=== PATIENT | male | born 1985 | race Caucasian/White ===

== ENCOUNTER → 2019-12-15 17:03 | Outpatient (CLI) | payer MEDICAID, SELFPAY ==
[2019-12-15 17:48] LABS: Chloride 104 mmol/L (98-107)
[2019-12-15 17:49] LABS: Basophils % 0.8 % (0.1-2.0); Eosinophils # 0.1 K/mm3 (0.0-0.4); Eosinophils % 1.9 % (0.1-12.0); Hematocrit 45.9 % (42.0-52.0); Hemoglobin 15.9 g/dL (14.1-18.0); Lymphocytes # 1.7 K/mm3 (0.7-4.5); Lymphocytes % 32.5 % (10-50); Mean Corpuscular HGB Conc 34.6 g/dL (31.8-35.4); Mean Corpuscular Hemoglobin 31.4 pg (27.0-31.2); Mean Corpuscular Volume 90.7 fl (80-94); Monocytes # 0.4 K/mm3 (0.1-1.0); Monocytes % 6.9 % (1.7-9.3); Neutrophils % 57.9 % (37.0-80.0); Platelet Count 255 K/mm3 (142-424); Potassium 4.3 mmoL/L (3.5-5.1); Red Blood Count 5.06 M/mm3 (4.60-6.20); Red Cell Distribution Width 13.1 % (11.5-17.5); Sodium 136 mmol/L (136-145); White Blood Count 5.2 K/mm3 (4.8-10.8)
[2019-12-15 17:51] LABS: Alanine Aminotransferase 29 U/L (12-78); Albumin Level 4.4 g/dl (3.5-5.0); Albumin/Globulin Ratio 1.8 (1.1-1.8); Alkaline Phosphatase 86 U/L (38-126); Anion Gap 10.3 mEq/L (5-15); Aspartate Amino Transferase 40 U/L (17-59); Bilirubin,Total 0.5 mg/dl (0.2-1.3); Blood Urea Nitrogen 13 mg/dl (9-20); Carbon Dioxide 26 mmol/L (22.0-30.0); Estimated Glomerular Filt Rate 98 ml/min (>60); GFR (African American) 118 ML/MIN (>60); Globulin 2.4 g/dL (1.3-3.2); Total Protein,Serum 6.8 g/dl (6.3-8.2)
[2019-12-15 17:52] LABS: Calcium 9.1 mg/dl (8.4-10.2); Chol/HDL Ratio 3.7 (1-3.5); Cholesterol 150 mg/dl (140-200); Glucose 108 mg/dl (74-100); HDL Cholesterol 41 mg/dl (40-60); Triglycerides 320 mg/dl (30-150); VLDL Cholesterol 64 mg/dL (0-40)
[2019-12-15 18:03] LABS: Direct LDL Cholesterol 84.01 mg/dL (100-129)
[2019-12-15 18:23] LABS: Thyroid Stimulating Hormone 1.68 uIU/mL (0.465-4.68)
[2019-12-17 11:18] LABS: Vitamin D 25 Hydroxy 27.6 ng/mL (30.0-100.0)
== END ==
PROVIDERS: Visit Provider Physician Assistant
DX: R53.83 Other fatigue (principal); E55.9 Vitamin D deficiency, unspecified; Z79.899 Other long term (current) drug therapy
CPT/HCPCS: 80053; 80061; 82652; 84436; 84443; 85025

== ENCOUNTER → 2020-02-04 17:05 | Outpatient (CLI) | payer MEDICAID, SELFPAY ==
[2020-02-06 10:16] LABS: Covid-19 Nasal PCR Sendout UK Not Detected
== END ==
PROVIDERS: PCP Physician Assistant; Visit Provider Physician Assistant
DX: Z03.818 Encounter for observation for suspected exposure to other biological agents ruled out (principal)
CPT/HCPCS: U0003

== ENCOUNTER 2020-06-10 15:32 | Emergency (ER) | payer BC, MEDICAID, SELFPAY ==
[2020-06-10 16:10] VITALS: BP 136/85; PULSE 86; RESP 15; TEMP 37.1; O2SAT 97; BMI 32.1
--- NOTE | 2020-06-10 16:36 | HMH.EDUTC ---
[facility] [place]: Exposure to COVID-19 virus Disposition: Home, Self-Care Condition on Discharge: Good Instructions: Preventing the Spread of Coronavirus Discharge Instructions Additional Instructions: isolate until est results are known neg Referrals: Alanis Dowd PA [Primary Care Provider] - Time of Disposition: 16:39 Medical Decision Making - Rafa Inquiry Pt receiving controlled substance: No Vital Signs: 06/10/20 16:10 Temperature 98.7 F Temperature Source Oral Pulse Rate [Right Brachial] 86 Respiratory Rate 15 Blood Pressure [Right Arm] 136/85 Blood Pressure Mean [Right Arm] 102 Blood Pressure Source [Right Arm] Automatic Cuff Blood Pressure Position [Right Arm] Sitting 02 Sat by Pulse Oximetry 97 Oxygen Delivery Method Room Air Orders (Tests/Meds): ORDERS Category Date Time Status Covid-19 Nasal PCR ([facility]) Routine Lab 06/10/20 15:35 [place] [facility] [place] - General Chief complaint: Urgent [facility] Center Stated complaint: covid exposure Time Seen by Provider: 06/10/20 16:36 Mode of Arrival: Ambulatory Source of Information: Patient Limitations: No Limitations Description of Symptoms (Recalled from Triage Doc. by RN): REQUESTING COVID TEST D/T EXPOSURE; DENIES SYMPTOMS HEENT Symptoms (Recalled from RN notes): No Resp Symptoms (Recalled from RN notes): No Skin Symptoms (Recalled from RN notes): No MS Symptoms (Recalled from RN notes): No Functional Status (Recalled from RN notes): WNL - History of Present Illness Provider Complaint: 34 yr old male presents for covid test, was exposed ths week by someone at work that tested positive. no symptoms - Related Data Home Medications Medication Instructions Recorded Confirmed buprenorphine 8 mg-naloxone 2 mg SUBLINGUAL 12/15/19 03/27/20 sublingual tablet Previous Rx's Medication Instructions Recorded amitriptyline 50 mg tablet 50 mg PO QHS #90 tab 03/27/20 cholecalciferol (vitamin D3) 25 25 mcg PO DAILY #90 cap 03/27/20 mcg (1,000 unit) capsule ergocalciferol (vitamin D2) 1,250 1,250 mcg PO QWEEK #12 cap 03/27/20 mcg (50,000 unit) capsule fluoxetine 20 mg capsule 20 mg PO DAILY #90 cap 03/27/20 gabapentin 600 mg tablet 600 mg PO Q8H #90 tab 03/27/20 lisinopril 5 mg tablet 5 mg PO DAILY #90 tab 03/27/20 Allergies Allergy/AdvReac Type Severity Reaction Status Date / Time Penicillins Allergy Verified 06/10/20 16:28 vancomycin Allergy Verified 06/10/20 16:28 - Worker's Comp Is this a Worker's Comp case?: No [facility] History - Hepatitis A Screen Drug use history?: No High risk sexual behaviors?: No History of sexually transmitted infection?: No Currently employed?: No Childcare worker?: No Do you have indoor plumbing?: Yes Do you have electricity?: Yes Attestation statement:: This patient has been screened for Hepatitis A risk factors. I have reviewed the patient's past medical history: Yes Amputation: No Fractures: No Comment: Hand surgery Lt - Social History Smoking Status: Current every day smoker Tobacco Type: e-cigarettes Alcohol Intake: never Substance Use Type: denies use Occupational Status: other Family Hx:: No significant family history ROS Obtained: Yes Systems reviewed as appropriate & no additional complaints - Constitutional Constitutional: Reports system reviewed and no additional complaints, except as docu, Denies chills, Denies fever(s) - Eyes Eyes: Reports system reviewed and no additional complaints, except as docu, Denies change in vision - ENT Ears, Nose, Mouth, and Throat: Reports system reviewed and no additional complaints, except as docu, Denies bleeding gums - Cardiovascular Cardiovascular: Reports system reviewed and no additional complaints, except as docu, Denies chest pain at rest - Respiratory Respiratory: Yes system reviewed and no additional complaints, except as docu, No change in phlegm color - Gastrointestinal Gas
[2020-06-10 16:41] VITALS: BP 136/85; PULSE 86; RESP 15; TEMP 37.1; O2SAT 97
--- NOTE | 2020-06-11 09:36 | PC.NURSE ---
patient notified of positive covid results
== END 2020-06-10 16:45 | disposition home or self-care (01) ==
PROVIDERS: Emergency Provider Nurse Practitioner Family; PCP Physician Assistant
DX: U07.1 COVID-19 (principal); F17.290 Nicotine dependence, other tobacco product, uncomplicated; Z88.0 Allergy status to penicillin
CPT/HCPCS: 99201; U0003

== ENCOUNTER 2020-06-21 15:22 | Emergency (ER) | payer BC, MEDICAID, SELFPAY ==
[2020-06-21 15:30] VITALS: BP 148/90; PULSE 85; RESP 19; TEMP 36.6; O2SAT 98; BMI 29.2
--- NOTE | 2020-06-21 15:46 | HMH.EDUTC ---
[facility] [place] Disposition Clinical Impression: Encounter for laboratory testing for COVID-19 virus Disposition: Home, Self-Care Condition on Discharge: Good Instructions: DI for COVID-19 (Suspected or Confirmed ), Preventing the Spread of Coronavirus Discharge Instructions Additional Instructions: *Monitor Temp, Over the counter Motrin or Tylenol as directed/as needed Tylenol every 4 hours and Motrin every 6 hours (as long as your family doctor has told you that you can take it) for fever or pain. and straight to ER if unable to lower temp less than 101.0 after medication given Follow up IMMEDIATELY for new or worsening symptoms or no Noticeable improvement over the next 48-72 hours. 911 for difficulty breathing or swallowing You were tested for today for COVID19 your test result should be back in the next 24-48 hours, you may call to the [facility] to see if your test results are back in the next 48 hours [phone] [facility] hours are 9am-9pm You was given a handout with instructions for Self Quarantine and Self isolation for while you wait on test results and what to do if they are positive If you are positive the Health Dept will be contacting you also Referrals: Alanis Dowd PA [Primary Care Provider] - As needed Forms: Work/School Release Time of Disposition: 15:50 Medical Decision Making - Rafa Inquiry Pt receiving controlled substance: No Rafa was queried for this patient: No Vital Signs: 06/21/20 15:30 Temperature 97.8 F Temperature Source Oral Pulse Rate [Right Brachial] 85 Respiratory Rate 19 Blood Pressure [Right Arm] 148/90 H Blood Pressure Mean [Right Arm] 109 Blood Pressure Source [Right Arm] Automatic Cuff Blood Pressure Position [Right Arm] Sitting 02 Sat by Pulse Oximetry 98 Oxygen Delivery Method Room Air Orders (Tests/Meds): ORDERS Category Date Time Status Covid-19 Nasal PCR ([facility]) Routine Lab 06/21/20 15:30 Received [facility] [place] HPI - General Stated complaint: covid test Time Seen by Provider: 06/21/20 15:46 Mode of Arrival: Ambulatory Source of Information: Patient Limitations: No Limitations Description of Symptoms (Recalled from Triage Doc. by RN): PATIENT TEST POSITIVE FOR COVID ON 06/10; REQUESTING A RE-TEST TO SEE IF NEGATIVE HEENT Symptoms (Recalled from RN notes): No Resp Symptoms (Recalled from RN notes): No Skin Symptoms (Recalled from RN notes): No MS Symptoms (Recalled from RN notes): No Functional Status (Recalled from RN notes): WNL - History of Present Illness Provider Complaint: Patient state that he tested positive for COVID on 06/10/20 State the has completed his quaratine and his work is requiring him to have a negative COVID test before he can return to work so he came back in today to get retested denies any symptoms - Related Data Home Medications Medication Instructions Recorded Confirmed buprenorphine 8 mg-naloxone 2 mg SUBLINGUAL 12/15/19 03/27/20 sublingual tablet Previous Rx's Medication Instructions Recorded amitriptyline 50 mg tablet 50 mg PO QHS #90 tab 03/27/20 cholecalciferol (vitamin D3) 25 25 mcg PO DAILY #90 cap 03/27/20 mcg (1,000 unit) capsule ergocalciferol (vitamin D2) 1,250 1,250 mcg PO QWEEK #12 cap 03/27/20 mcg (50,000 unit) capsule fluoxetine 20 mg capsule 20 mg PO DAILY #90 cap 03/27/20 gabapentin 600 mg tablet 600 mg PO Q8H #90 tab 03/27/20 lisinopril 5 mg tablet 5 mg PO DAILY #90 tab 03/27/20 Allergies Allergy/AdvReac Type Severity Reaction Status Date / Time Penicillins Allergy Verified 06/10/20 16:28 vancomycin Allergy Verified 06/10/20 16:28 - Worker's Comp Is this a Worker's Comp case?: No [facility] History - Hepatitis A Screen Drug use history?: No High risk sexual behaviors?: No History of sexually transmitted infection?: No Currently employed?: No Childcare worker?: No Do you have indoor plumbing?: Yes Do you have electricity?: Yes Attestation statement:: This patient has been screened for
[2020-06-21 15:52] VITALS: BP 148/90; PULSE 85; RESP 19; TEMP 36.6; O2SAT 98
== END 2020-06-21 15:54 | disposition home or self-care (01) ==
PROVIDERS: Emergency Provider Nurse Practitioner; PCP Physician Assistant
DX: Z86.19 Personal history of other infectious and parasitic diseases (principal)
CPT/HCPCS: 99201; U0003

== ENCOUNTER → 2020-06-27 17:36 | Outpatient (CLI) | payer BC, MEDICAID, SELFPAY ==
[2020-06-27 18:17] LABS: Basophils # 0.1 K/mm3 (0-0.2); Eosinophils # 0.1 K/mm3 (0.0-0.4); Eosinophils % 2.4 % (0.1-12.0); Hemoglobin 15.6 g/dL (14.1-18.0); Lymphocytes # 1.9 K/mm3 (0.7-4.5); Lymphocytes % 31.4 % (10-50); Mean Corpuscular Hemoglobin 30.2 pg (27.0-31.2); Mean Corpuscular Volume 88.8 fl (80-94); Mean Platelet Volume 8.2 fl (7.4-10.4); Monocytes # 0.4 K/mm3 (0.1-1.0); Monocytes % 6.8 % (1.7-9.3); Neutrophils # 3.5 K/mm3 (1.8-7.8); Neutrophils % 58.4 % (37.0-80.0); Platelet Count 323 K/mm3 (142-424); Red Blood Count 5.18 M/mm3 (4.60-6.20); Red Cell Distribution Width 13.6 % (11.5-17.5); White Blood Count 6.1 K/mm3 (4.8-10.8)
[2020-06-27 18:44] LABS: Alanine Aminotransferase 46 U/L (12-78); Albumin Level 4.6 g/dl (3.5-5.0); Albumin/Globulin Ratio 1.7 (1.1-1.8); Alkaline Phosphatase 93 U/L (38-126); Anion Gap 12.1 mEq/L (5-15); Aspartate Amino Transferase 40 U/L (17-59); Bilirubin,Total 0.3 mg/dl (0.2-1.3); Blood Urea Nitrogen 11 mg/dl (9-20); Calcium 9.9 mg/dl (8.4-10.2); Carbon Dioxide 32 mmol/L (22.0-30.0); Chloride 98 mmol/L (98-107); Chol/HDL Ratio 4.3 (1-3.5); Cholesterol 203 mg/dl (140-200); Estimated Glomerular Filt Rate 98 ml/min (>60); GFR (African American) 118 ML/MIN (>60); Globulin 2.7 g/dL (1.3-3.2); Glucose 118 mg/dl (74-100); HDL Cholesterol 47 mg/dl (40-60); Potassium 4.1 mmoL/L (3.5-5.1); Sodium 138 mmol/L (136-145); Total Protein,Serum 7.3 g/dl (6.3-8.2)
[2020-06-27 18:55] LABS: Direct LDL Cholesterol 110.21 mg/dL (100-129)
[2020-06-27 19:00] LABS: Triglycerides 403 mg/dl (30-150)
[2020-06-29 08:23] LABS: Hep A Ab, IgM Negative (Negative); Hepatitis B Core Antibody IgM Negative (Negative); Hepatitis B Surface Antigen Negative (Negative)
[2020-06-29 09:10] LABS: Hepatitis C Antibody <0.1 s/co ratio (0.0-0.9); Testosterone,Total 199 ng/dL (264-916)
== END ==
PROVIDERS: Visit Provider Physician Assistant
DX: R68.82 Decreased libido (principal); G62.9 Polyneuropathy, unspecified; Z79.899 Other long term (current) drug therapy
CPT/HCPCS: 80053; 80061; 80074; 84403; 84443; 85025

== ENCOUNTER 2021-02-07 09:46 | Emergency (ER) | payer BC, MEDICAID, SELFPAY ==
[2021-02-07 09:46] VITALS: BP 143/86; PULSE 71; RESP 21; TEMP 36.9; O2SAT 98; BMI 30.4
--- NOTE | 2021-02-07 10:20 | HMH.EDUTC ---
[facility] [place] Clinical Impression: Exposure to COVID-19 virus Disposition: Home, Self-Care Condition on Discharge: Good Instructions: DI for COVID-19 (Suspected or Confirmed ), Preventing the Spread of Coronavirus Discharge Instructions Additional Instructions: Drink plenty of fluids. Take tylenol for pain or fever. Return if you begin to have difficulty breathing. Follow up with your regular doctor. GO TO THE ER FOR ANY WORSENING SYMPTOMS Referrals: Alanis Dowd PA [Primary Care Provider] - Forms: Work/School Release Time of Disposition: 10:30 Medical Decision Making - Medical Records Medical records reviewed: No: I reviewed the patient's medical records. - Rafa Inquiry Pt receiving controlled substance: No Vital Signs: 02/07/21 09:46 02/07/21 10:46 Temperature 98.4 F 98.4 F Temperature Source Oral Pulse Rate 71 Pulse Rate [Left Radial] 71 Respiratory Rate 21 21 Blood Pressure 143/86 H Blood Pressure [Right Arm] 143/86 H Blood Pressure Mean [Right Arm] 105 Blood Pressure Source [Right Arm] Automatic Cuff Blood Pressure Position [Right Arm] Sitting 02 Sat by Pulse Oximetry 98 Oxygen Delivery Method Room Air Room Air [facility] [place] - General Stated complaint: Covid Test Time Seen by Provider: 02/07/21 10:20 Mode of Arrival: Ambulatory Source of Information: Patient Limitations: No Limitations Description of Symptoms (Recalled from Triage Doc. by RN): covid test, exposure last week HEENT Symptoms (Recalled from RN notes): No Resp Symptoms (Recalled from RN notes): No Skin Symptoms (Recalled from RN notes): No MS Symptoms (Recalled from RN notes): No Functional Status (Recalled from RN notes): wnl - History of Present Illness Provider Complaint: He is here for a covid test. He denies any symptoms. He has been exposed by a house hold contact. - Related Data Home Medications Medication Instructions Recorded Confirmed buprenorphine 8 mg-naloxone 2 mg SUBLINGUAL 12/15/19 12/18/20 sublingual tablet Previous Rx's Medication Instructions Recorded fluoxetine 20 mg capsule 20 mg PO DAILY #90 cap 03/27/20 amitriptyline 50 mg tablet 50 mg PO QHS #90 tab 12/05/20 lisinopril 10 mg tablet 10 mg PO DAILY #90 tab 12/18/20 gabapentin 800 mg tablet 800 mg PO TID #90 tab 01/25/21 Allergies Allergy/AdvReac Type Severity Reaction Status Date / Time Penicillins Allergy Verified 12/18/20 09:10 vancomycin Allergy Verified 12/18/20 09:10 - Worker's Comp Is this a Worker's Comp case?: No [facility] History - Hepatitis A Screen Drug use history?: No High risk sexual behaviors?: No History of sexually transmitted infection?: No Currently employed?: No Childcare worker?: No Do you have indoor plumbing?: Yes Do you have electricity?: Yes Attestation statement:: This patient has been screened for Hepatitis A risk factors. I have reviewed the patient's past medical history: Yes Other Medical History: Reports: Other Comment: Neuropathy Other Surgeries: Yes: Other Amputation: No Fractures: No Comment: Hand surgery - Social History Smoking Status: Current every day smoker Tobacco Type: e-cigarettes Alcohol Intake: never Substance Use Type: denies use Occupational Status: other Family Hx:: No significant family history ROS Obtained: Yes All systems reviewed & no additional complaints - Constitutional Constitutional: Reports system reviewed and no additional complaints, except as docu - Eyes Eyes: Reports system reviewed and no additional complaints, except as docu - ENT Ears, Nose, Mouth, and Throat: Reports system reviewed and no additional complaints, except as docu - Cardiovascular Cardiovascular: Reports system reviewed and no additional complaints, except as docu - Respiratory Respiratory: Reports system reviewed and no additional complaints, except as docu Physical Exam - General General appearance: alert, in no apparen
[2021-02-07 10:46] VITALS: BP 143/86; PULSE 71; RESP 21; TEMP 36.9; O2SAT 98
== END 2021-02-07 10:47 | disposition home or self-care (01) ==
PROVIDERS: Emergency Provider Nurse Practitioner Family; PCP Physician Assistant
DX: Z20.822 Contact with and (suspected) exposure to COVID-19 (principal); F17.290 Nicotine dependence, other tobacco product, uncomplicated
CPT/HCPCS: 99202; G0463; U0003

== ENCOUNTER 2021-02-25 18:31 | Emergency (ER) | payer BC, MEDICAID, SELFPAY ==
[2021-02-25 19:10] VITALS: BP 140/79; PULSE 70; RESP 20; TEMP 36.8; O2SAT 98; BMI 29.2
--- NOTE | 2021-02-25 19:40 | HMH.EDUTC ---
[facility] [place] Dis[place] Clinical Impression: Exposure to COVID-19 virus Disposition: Home, Self-Care Condition on Discharge: Good Instructions: COVID-19: Testing and Tracing Additional Instructions: covid swab was sent to lab, call later today for results. self isolate until test results are known to be negative Referrals: Alanis Dowd PA [Primary Care Provider] - Time of Disposition: 19:45 Medical Decision Making - Rafa Inquiry Pt receiving controlled substance: No Vital Signs: 02/25/21 19:10 Temperature 98.3 F Temperature Source Temporal Artery Scan Pulse Rate [Right Brachial] 70 Respiratory Rate 20 Blood Pressure [Right Arm] 140/79 Blood Pressure Mean [Right Arm] 99 Blood Pressure Source [Right Arm] Automatic Cuff Blood Pressure Position [Right Arm] Sitting 02 Sat by Pulse Oximetry 98 Oxygen Delivery Method Room Air Orders (Tests/Meds): ORDERS Category Date Time Status Covid-19 Nasal PCR ([facility]) Routine Lab 02/25/21 19:15 Received [facility] [place] HPI - General Chief complaint: Urgent Treatment Center Stated complaint: covid test Time Seen by Provider: 02/25/21 19:41 Mode of Arrival: Ambulatory Source of Information: Patient Limitations: No Limitations Description of Symptoms (Recalled from Triage Doc. by RN): COVID TEST D/T EXPOSURE, DENIES SYMPTOMS HEENT Symptoms (Recalled from RN notes): No Resp Symptoms (Recalled from RN notes): No Skin Symptoms (Recalled from RN notes): No MS Symptoms (Recalled from RN notes): No Functional Status (Recalled from RN notes): WNL - History of Present Illness Provider Complaint: 35 yr old male presents for covid test. pt states no symptoms but has been exposed by coworker - Related Data Home Medications Medication Instructions Recorded Confirmed buprenorphine 8 mg-naloxone 2 mg SUBLINGUAL 12/15/19 12/18/20 sublingual tablet Previous Rx's Medication Instructions Recorded fluoxetine 20 mg capsule 20 mg PO DAILY #90 cap 03/27/20 amitriptyline 50 mg tablet 50 mg PO QHS #90 tab 12/05/20 lisinopril 10 mg tablet 10 mg PO DAILY #90 tab 12/18/20 gabapentin 800 mg tablet 800 mg PO TID #90 tab 01/25/21 Allergies Allergy/AdvReac Type Severity Reaction Status Date / Time Penicillins Allergy Verified 12/18/20 09:10 vancomycin Allergy Verified 12/18/20 09:10 - Worker's Comp Is this a Worker's Comp case?: No [facility] History - Hepatitis A Screen Drug use history?: No High risk sexual behaviors?: No History of sexually transmitted infection?: No Currently employed?: No Childcare worker?: No Do you have indoor plumbing?: Yes Do you have electricity?: Yes Attestation statement:: This patient has been screened for Hepatitis A risk factors. I have reviewed the patient's past medical history: Yes Other Medical History: Reports: Other Comment: Neuropathy Other Surgeries: Yes: Other Amputation: No Fractures: No Comment: Hand surgery - Social History Smoking Status: Current every day smoker Tobacco Type: e-cigarettes Alcohol Intake: never Substance Use Type: denies use Occupational Status: other Family Hx:: No significant family history ROS Obtained: Yes All systems reviewed & no additional complaints - Constitutional Constitutional: Reports system reviewed and no additional complaints, except as docu, Denies chills - Eyes Eyes: Reports system reviewed and no additional complaints, except as docu, Denies change in vision - ENT Ears, Nose, Mouth, and Throat: Reports system reviewed and no additional complaints, except as docu, Denies abnormal hearing - Cardiovascular Cardiovascular: Reports system reviewed and no additional complaints, except as docu, Denies chest pain - Respiratory Respiratory: Reports system reviewed and no additional complaints, except as docu, Denies cough - Gastrointestinal Gastrointestingal: Reports: system reviewed and no additional complaints, except as docu. Denies: abdominal pain - Genito
[2021-02-25 19:51] VITALS: BP 140/79; PULSE 70; RESP 20; TEMP 36.8; O2SAT 98
== END 2021-02-25 19:54 | disposition home or self-care (01) ==
PROVIDERS: Emergency Provider Nurse Practitioner Family; PCP Physician Assistant
DX: U07.1 COVID-19 (principal); F17.290 Nicotine dependence, other tobacco product, uncomplicated
CPT/HCPCS: 99202; G0463; U0003

== ENCOUNTER → 2021-03-29 19:45 | Outpatient (CLI) | payer BC, MEDICAID, SELFPAY ==
[2021-03-29 20:07] LABS: Amphetamine/Metha Screen,Urine Negative ng/ml (<1000); Barbiturates Screen,Urine Negative ng/ml (<200)
[2021-03-29 20:08] LABS: Benzodiazepines Screen,Urine Negative ng/ml (<200); Cannabinoid Screen,Urine Positive ng/ml (<50)
[2021-03-29 20:09] LABS: Cocaine Screen,Urine Negative ng/ml (<300)
[2021-03-29 20:10] LABS: Methadone Screen,Urine Negative ng/ml (<300); Opiate Screen,Urine Negative ng/ml (<300)
[2021-03-29 20:11] LABS: Phencyclidine Screen,Urine Negative ng/ml (<25)
== END ==
PROVIDERS: Visit Provider Family Medicine
DX: G62.9 Polyneuropathy, unspecified (principal)
CPT/HCPCS: 80305

== ENCOUNTER 2021-04-11 10:15 | Emergency (ER) | payer BC, MEDICAID, SELFPAY ==
[2021-04-11 10:20] VITALS: BP 141/98; PULSE 102; RESP 18; TEMP 37.1; O2SAT 98; BMI 33.5
--- NOTE | 2021-04-11 10:57 | HMH.EDUTC ---
[facility] [place] Clinical Impression: Sinusitis Qualifiers: Sinusitis location: unspecified location Chronicity: unspecified Qualified Code(s): J32.9 - Chronic sinusitis, unspecified Disposition: Home, Self-Care Condition on Discharge: Good Instructions: Sinusitis, DI for Sinusitis, Doxycycline Additional Instructions: *Monitor Temp, Over the counter Motrin or Tylenol as directed/as needed Tylenol every 4 hours and Motrin every 6 hours (as long as your family doctor has told you that you can take it) for fever or pain. and straight to ER if unable to lower temp less than 101.0 after medication given *Warm salt water gargles may help to soothe the throat *Throat Lozenges *Warm fluids like tea with honey may help to soothe the throat *Sleep elevated *Humidifier/Vaporizer Follow up IMMEDIATELY for new or worsening symptoms or no Noticeable improvement over the next 48-72 hours. 911 for difficulty breathing or swallowing You were tested for today for COVID19 your test result should be back in the next 24-48 hours, you was given handout to log on [facility] portal to get your results if you have issues logging on you can call [facility] You was given a handout with instructions for Self Quarantine and Self isolation for while you wait on test results and what to do if they are positive If you are positive the Health Dept will be contacting you also Make sure to take your Vitamins Vit. C Vit D and Zinc if you can take them Prescriptions: Doxycycline Monohydrate [Doxycycline Knott 100mg Tab] 100 mg PO Q12 7 Days #14 tab Transmission Status: Pending to [facility] Fluticasone Propionate [Flonase 50mcg nasal spray 16gm] 1 spr NS DAILY #1 each Transmission Status: Pending to [facility] Referrals: Alanis Dowd PA [Primary Care Provider] - As needed Forms: Work/School Release Time of Disposition: 11:03 Medical Decision Making - Rafa Inquiry Pt receiving controlled substance: No Rafa was queried for this patient: No Vital Signs: 04/11/21 10:20 Temperature 98.8 F Temperature Source Oral Pulse Rate [Right Brachial] 102 H Respiratory Rate 18 Blood Pressure [Right Arm] 141/98 H Blood Pressure Mean [Right Arm] 112 Blood Pressure Source [Right Arm] Automatic Cuff Blood Pressure Position [Right Arm] Sitting 02 Sat by Pulse Oximetry 98 Oxygen Delivery Method Room Air Orders (Tests/Meds): ORDERS Category Date Time Status Covid-19 Nasal PCR ([facility]) Routine Lab 04/11/21 10:20 Received Medical Decision Narrative: Medication discussed with pharmacy [facility] [place] HPI - General Stated complaint: H/A, soa, congestion, covid exposure Time Seen by Provider: 04/11/21 10:57 Mode of Arrival: Ambulatory Source of Information: Patient Limitations: No Limitations Description of Symptoms (Recalled from Triage Doc. by RN): PATIENT C/O COUGH, CONGESTION AND HEADACHE. RECENTLY EXPOSED TO COVID HEENT Symptoms (Recalled from RN notes): No Resp Symptoms (Recalled from RN notes): No Skin Symptoms (Recalled from RN notes): No MS Symptoms (Recalled from RN notes): No Functional Status (Recalled from RN notes): WNL - History of Present Illness Provider Complaint: Patient states that he has been having sinus pain and pressure, cough, yellowish green mucous and feeling pressure behind his eyes States that he was recently around someone at work that tested positive for COVID and wanted to get checked and tested - Related Data Home Medications Medication Instructions Recorded Confirmed buprenorphine 8 mg-naloxone 2 mg SUBLINGUAL 12/15/19 03/29/21 sublingual tablet Previous Rx's Medication Instructions Recorded fluoxetine 20 mg capsule 20 mg PO DAILY #90 cap 03/27/20 lisinopril 10 mg tablet 10 mg PO DAILY #90 tab 12/18/20 amitriptyline 50 mg tablet 50 mg PO QHS #90 tab 03/08/21 gabapentin 800 mg tablet 800 mg PO TID #90 tab 03/29/21 Doxycycline Monohydrate 100 mg PO Q12 7 Days #14 tab 04/11/21 [Doxycy
[2021-04-11 11:12] VITALS: BP 141/98; PULSE 102; RESP 18; TEMP 37.1; O2SAT 98
== END 2021-04-11 11:13 | disposition home or self-care (01) ==
PROVIDERS: Emergency Provider Nurse Practitioner; PCP Physician Assistant
DX: J32.9 Chronic sinusitis, unspecified (principal); Z20.822 Contact with and (suspected) exposure to COVID-19; F17.290 Nicotine dependence, other tobacco product, uncomplicated; F41.8 Other specified anxiety disorders
CPT/HCPCS: 99202; C9803; G0463; U0003; U0005

== ENCOUNTER → 2021-07-16 15:33 | Outpatient (CLI) | payer BC, MEDICAID, SELFPAY | PROVIDERS: Visit Provider Nurse Practitioner | DX: U07.1 COVID-19 (principal) | CPT/HCPCS: C9803; U0003; U0005 ==

== ENCOUNTER 2021-08-31 12:15 | Emergency (ER) | payer MEDICAID, SELFPAY ==
[2021-08-31 13:33] VITALS: BP 0/0; PULSE 0; RESP 0; TEMP -17.7; TEMP 0
== END 2021-08-31 13:34 | disposition left against medical advice (07) ==
PROVIDERS: Emergency Provider Nurse Practitioner Family; PCP Physician Assistant
DX: Z53.21 Procedure and treatment not carried out due to patient leaving prior to being seen by health care provider (principal)

== ENCOUNTER 2021-10-28 16:52 | Emergency (ER) | payer OTHER, SELFPAY ==
[2021-10-28 17:12] VITALS: BP 146/91; PULSE 103; RESP 18; TEMP 36.6; O2SAT 97; BMI 30.7
[2021-10-28 17:51] VITALS: BP 139/77; PULSE 93; RESP 18; TEMP 37.1; O2SAT 99; BMI 29.9
--- NOTE | 2021-10-28 17:51 | HMH.EDUTC ---
[facility] [place] Disposition Clinical Impression: Need for tetanus booster Laceration of right hand Qualifiers: Encounter type: initial encounter Foreign body presence: without foreign body Qualified Code(s): S61.411A - Laceration without foreign body of right hand, initial encounter Disposition: Home, Self-Care Condition on Discharge: Good Instructions: How to Care for a Laceration After Repair, DI for Laceration Repair -- Simple, Tetanus, Diphtheria, Pertussis (Tdap) Vaccine Additional Instructions: Keep the wound clean and dry. Keep a dressing on it if you are going to be getting it dirty. Watch the for signs of infection, such as redness, swelling, drainage, fever. etc. Take tylenol or ibuprofen for pain. Follow up with your regular doctor. Return in 7 to 10 days to have the sutures removed. This wound will probably need closer to 10 days to heal considering its on a place that will be moving a lot. GO TO THE ER FOR ANY WORSENING SYMPTOMS OR CONCERNS. Prescriptions: cephALEXin [cephALEXin 500mg capsule] 500 mg PO Q6H 10 Days #40 cap Transmission Status: Received by [facility] Referrals: Alanis Dowd PA [Primary Care Provider] - Forms: Work/School Release Time of Disposition: 18:55 Medical Decision Making - Medical Records Medical records reviewed: No: I reviewed the patient's medical records. - Rafa Inquiry Pt receiving controlled substance: No Vital Signs: 10/28/21 17:12 10/28/21 17:51 10/28/21 19:09 Temperature 97.9 F 98.7 F 98.7 F Temperature Source Oral Oral Oral Pulse Rate 93 H Pulse Rate [Left Brachial] 103 H 93 H Respiratory Rate 18 18 18 Blood Pressure 139/77 Blood Pressure [Left Arm] 146/91 H 139/77 Blood Pressure Mean [Left Arm] 109 97 Blood Pressure Source [Left Arm] Automatic Cuff Blood Pressure Position [Left Arm] Sitting 02 Sat by Pulse Oximetry 97 99 Oxygen Delivery Method Room Air Orders (Tests/Meds): ED MEDICATIONS Discontinued Medications Generic Name Dose Route Start Last Admin Trade Name Freq PRN Reason Stop Dose Admin Lidocaine HCl 4 ml 10/28/21 19:06 10/28/21 19:07 Lidocaine 1% Pf 2ml Ampule SQ 10/28/21 19:07 4 mg ONCE ONE Administration Tetanus/Reduced Diphtheria/Acell Pertussis 0.5 ml 10/28/21 18:53 10/28/21 19:03 Tet/Diphth/Pert-Adult 0.5ml Syringe IM 10/28/21 18:54 0.5 ml .ONCE ONE Administration [facility] [place] HPI - General Stated complaint: ao 10/28@1515Lac to R Hand Time Seen by Provider: 10/28/21 17:51 Mode of Arrival: Ambulatory Source of Information: Patient Limitations: No Limitations Description of Symptoms (Recalled from Triage Doc. by RN): WORKING ON ITS [employer], WRENCH SLIPPED. LACERATION BETWEEM THUMB AND INDEX FINGER. ABOUT 1 INCH LONG. PT ABLE TO MOVE ALL FINGERS, NO LOSS OF SENSATION. - History of Present Illness Provider Complaint: He was working on a 4-ma at home when the wrench slipped and he bumped his right hand into a sharp piece of metal. He has a laceration on the dorsal surface of his right hand. His tetanus immunization is not up to date. - Related Data Home Medications Medication Instructions Recorded Confirmed buprenorphine 8 mg-naloxone 2 mg SUBLINGUAL 12/15/19 07/10/21 sublingual tablet Previous Rx's Medication Instructions Recorded Fluticasone Propionate [Flonase 1 spr NS DAILY #1 each 04/11/21 50mcg nasal spray 16gm] amitriptyline 50 mg tablet 50 mg PO QHS #90 tab 06/22/21 fluoxetine 20 mg capsule 20 mg PO DAILY #90 cap 06/22/21 amlodipine 10 mg tablet 10 mg PO DAILY #90 tab 07/10/21 gabapentin 800 mg tablet 800 mg PO TID #90 tab 07/10/21 cephALEXin [cephALEXin 500mg 500 mg PO Q6H 10 Days #40 cap 10/28/21 capsule] Allergies Allergy/AdvReac Type Severity Reaction Status Date / Time Penicillins Allergy Verified 07/10/21 16:10 vancomycin Allergy Verified 07/10/21 16:10 [facility] History - Hepatitis A Screen Attestation statement
[2021-10-28 19:09] VITALS: BP 139/77; PULSE 93; RESP 18; TEMP 37.1
== END 2021-10-28 19:10 | disposition home or self-care (01) ==
PROVIDERS: Emergency Provider Nurse Practitioner Family; PCP Physician Assistant
DX: S61.411A Laceration without foreign body of right hand, initial encounter (principal); Z23 Encounter for immunization; F41.8 Other specified anxiety disorders; Z87.891 Personal history of nicotine dependence; W26.9XXA Contact with unspecified sharp object(s), initial encounter; Y92.019 Unspecified place in single-family (private) house as the place of occurrence of the external cause
CPT/HCPCS: 12002; 90471; 90715; 96372; 99213; G0463

== ENCOUNTER 2022-02-05 14:42 | Emergency (ER) | payer BC, SELFPAY ==
[2022-02-05 14:55] VITALS: BP 132/90; PULSE 77; RESP 19; TEMP 36.8; O2SAT 98; BMI 29.8
[2022-02-05 15:07] VITALS: BP 132/90; PULSE 77; RESP 19; TEMP 36.8; O2SAT 98
--- NOTE | 2022-02-05 15:15 | HMH.EDUTC ---
[facility] [place] Clinical Impression: Exposure to COVID-19 virus Disposition: Home, Self-Care Condition on Discharge: Good Instructions: DI for COVID-19 (Suspected or Confirmed ), Preventing the Spread of Coronavirus Discharge Instructions Additional Instructions: *Monitor Temp, Over the counter Motrin or Tylenol as directed/as needed Tylenol every 4 hours and Motrin every 6 hours (as long as your family doctor has told you that you can take it) for fever or pain. and straight to ER if unable to lower temp less than 101.0 after medication given *Warm salt water gargles may help to soothe the throat *Throat Lozenges *Warm fluids like tea with honey may help to soothe the throat *Sleep elevated *Humidifier/Vaporizer Follow up IMMEDIATELY for new or worsening symptoms or no Noticeable improvement over the next 48-72 hours. 911 for difficulty breathing or swallowing You were tested for today for COVID19 your test result should be back in the next 24-48 hours, you may check your results on the [facility] My Health Portal Make sure to take your Vitamins Vit. C Vit D and Zinc if you can take them Referrals: Alanis Dowd PA [Primary Care Provider] - As needed Forms: Work/School Release Medical Decision Making - Rafa Inquiry Pt receiving controlled substance: No Rafa was queried for this patient: No Vital Signs: 02/05/22 14:55 02/05/22 15:07 Temperature 98.3 F 98.3 F Temperature Source Oral Pulse Rate 77 Pulse Rate [Right Brachial] 77 Respiratory Rate 19 19 Blood Pressure 132/90 Blood Pressure [Right Arm] 132/90 Blood Pressure Mean [Right Arm] 104 Blood Pressure Source [Right Arm] Automatic Cuff Blood Pressure Position [Right Arm] Sitting 02 Sat by Pulse Oximetry 98 Oxygen Delivery Method Room Air Orders (Tests/Meds): ORDERS Category Date Time Status Covid-19 Nasal PCR ([facility]) Routine Lab 02/05/22 14:49 Ordered [facility] [place] HPI - General Stated complaint: covid exposure, covid test Time Seen by Provider: 02/05/22 15:00 Mode of Arrival: Ambulatory Source of Information: Patient Limitations: No Limitations Description of Symptoms (Recalled from Triage Doc. by RN): COVID TEST D/T EXPOSURE. C/O RUNNY NOSE, BODY ACHES, AND COUGH X 4 DAYS HEENT Symptoms (Recalled from RN notes): Yes Resp Symptoms (Recalled from RN notes): No Skin Symptoms (Recalled from RN notes): No MS Symptoms (Recalled from RN notes): No Functional Status (Recalled from RN notes): WNL - History of Present Illness Provider Complaint: Patient states that he was around someone that was positive for COVID and for the last 3-4 days he was having nasal congestion runny nose bodyaches and cough States that today he was feeling better but wanted to get tested where he was around them and just found out they was positive - Related Data Home Medications Medication Instructions Recorded Confirmed buprenorphine 8 mg-naloxone 2 mg 2 film BUCCAL each 11/20/21 11/20/21 sublingual film Previous Rx's Medication Instructions Recorded amitriptyline 50 mg tablet 50 mg PO QHS #90 tab 11/20/21 sildenafil (pulm.hypertension) 20 20 mg PO DAILY #30 tab 11/20/21 mg tablet gabapentin 800 mg tablet 800 mg PO TID #90 tab 01/24/22 Allergies Allergy/AdvReac Type Severity Reaction Status Date / Time Penicillins Allergy Verified 11/20/21 16:01 vancomycin Allergy Verified 11/20/21 16:01 - Worker's Comp Is this a Worker's Comp case?: No [facility] History - Hepatitis A Screen Attestation statement:: This patient has been screened for Hepatitis A risk factors. I have reviewed the patient's past medical history: Yes Medical History: Reports:: Anxiety, Depression Other Medical History: Reports: Other Comment: Neuropathy Other Surgeries: Yes: Other Amputation: No Fractures: No Comment: Hand surgery Lt-2007 - Social History Smoking Status: Former smoker Tobacco Type: e-cigarettes Alcohol Intake: never Substanc
== END 2022-02-05 15:10 | disposition home or self-care (01) ==
PROVIDERS: Emergency Provider Nurse Practitioner; PCP Physician Assistant
DX: U07.1 COVID-19 (principal)
CPT/HCPCS: 99212; C9803; G0463; U0003; U0005

== ENCOUNTER 2022-05-05 09:22 | Emergency (ER) | payer BC, SELFPAY ==
[2022-05-05 09:23] VITALS: BP 161/93; PULSE 117; RESP 20; TEMP 36.8; O2SAT 94; BMI 32.1
[2022-05-05 09:36] VITALS: BMI 32.1
[2022-05-05 09:43] LABS: Basophils # 0.1 K/mm3 (0-0.2); Basophils % 0.5 % (0.1-2.0); Eosinophils # 0.3 K/mm3 (0.0-0.4); Eosinophils % 1.8 % (0.1-12.0); Hematocrit 52.1 % (42.0-52.0); Lymphocytes # 0.9 K/mm3 (0.7-4.5); Lymphocytes % 6.1 % (10-50); Mean Corpuscular HGB Conc 35.1 g/dL (31.8-35.4); Mean Corpuscular Hemoglobin 30.6 pg (27.0-31.2); Mean Corpuscular Volume 87.2 fl (80-94); Mean Platelet Volume 7.7 fl (7.4-10.4); Monocytes # 0.5 K/mm3 (0.1-1.0); Monocytes % 3.4 % (1.7-9.3); Neutrophils # 12.5 K/mm3 (1.8-7.8); Neutrophils % 88.1 % (37.0-80.0); Platelet Count 355 K/mm3 (142-424); Red Blood Count 5.97 M/mm3 (4.60-6.20); Red Cell Distribution Width 13.9 % (11.5-17.5); White Blood Count 14.2 K/mm3 (4.8-10.8)
--- NOTE | 2022-05-05 09:45 | CT_ITS ---
PROCEDURE INFORMATION: Exam: CT Abdomen And Pelvis With Contrast Exam date and time: 05/05/2022 10:02 AM Age: 36 years old Clinical indication: Bloating and vomiting; Additional info: Abdo pain, distension, vomiting TECHNIQUE: Imaging protocol: Computed tomography of the abdomen and pelvis with contrast. Radiation optimization: All CT scans at this facility use at least one of these dose optimization techniques: automated exposure control; mA and/or kV adjustment per patient size (includes targeted exams where dose is matched to clinical indication); or iterative reconstruction. Contrast material: ISOVUE; Contrast volume: 75 ml; Contrast route: IV; COMPARISON: No relevant prior studies available. FINDINGS: Lungs: Nonspecific punctate micronodule (less than 4 mm) in the right middle lobe. Mediastinal space: Mild nonspecific distal esophageal wall thickening. Liver: Fatty infiltration of the liver. Gallbladder and bile ducts: No calcified stones. No ductal dilation. Pancreas: Normal. No ductal dilation. Spleen: Mild splenomegaly. Adrenal glands: No mass. Kidneys and ureters: No hydronephrosis. Stomach and bowel: The colon from the proximal transverse region to the rectosigmoid colon and appears to have mild to moderate wall thickening. Findings are nonspecific, but are favored to be due to relative nondistention/peristalsis. No evidence of acute inflammatory fat stranding, but correlate clinically for colitis. Appendix: No evidence of appendicitis. Intraperitoneal space: No free air. No significant fluid collection. 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 The proximal common hepatic artery is also aneurysmal up to 12 mm in diameter proximally. Lymph nodes: Aerg-lb-dxefhrfokq enlarged central mesenteric and retroperitoneal lymph nodes. A central mesenteric lymph node measures up to 2.1 x 1.7 cm. A pericaval/aortocaval lymph node measures up to 3.4 x 0.8 cm. Urinary bladder: Unremarkable as visualized. Reproductive: Unremarkable as visualized. Bones/joints: Bilateral pars defects at L5 with 4 mm of spondylolisthesis of L5 on S1. Soft tissues: Small fat containing umbilical hernia. IMPRESSION: 1. The colon from the proximal transverse region to the rectosigmoid colon and appears to have mild to moderate wall thickening. Findings are nonspecific, but are favored to be due to relative nondistention/peristalsis. No evidence of acute inflammatory fat stranding, but correlate clinically for colitis. 2. Caln-zz-adtoaiakqp enlarged central mesenteric and retroperitoneal lymph nodes. A central mesenteric lymph node measures up to 2.1 x 1.7 cm. A pericaval/aortocaval lymph node measures up to 3.4 x 0.8 cm. A lymphoproliferative disorder could be considered. Findings are nonspecific and of uncertain chronicity/significance; consider follow-up. 3. Mild splenomegaly. 4. 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 The proximal common hepatic artery is also aneurysmal up to 12 mm in diameter proximally. 5. Other findings as detailed in the body of the report.
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
[2022-05-05 09:51] LABS: Chloride 97 mmol/L (98-107)
[2022-05-05 09:52] LABS: Potassium 4.3 mmoL/L (3.5-5.1); Sodium 138 mmol/L (136-145)
[2022-05-05 09:54] LABS: Alanine Aminotransferase 72 U/L (12-78); Alkaline Phosphatase 152 U/L (38-126); Aspartate Amino Transferase 50 U/L (17-59); Bilirubin,Total 0.8 mg/dl (0.2-1.3); Blood Urea Nitrogen 12 mg/dl (9-20); Creatinine Clearance Estimated 192 mL/min (50-200); Estimated Glomerular Filt Rate 111 ml/min (>60); GFR (African American) 134 ML/MIN (>60); Lipase 40 U/L (23-300)
[2022-05-05 09:55] LABS: Albumin Level 4.9 g/dl (3.5-5.0); Albumin/Globulin Ratio 1.6 (1.1-1.8); Anion Gap 16.3 mEq/L (5-15); Calcium 9.3 mg/dl (8.4-10.2); Carbon Dioxide 29 mmol/L (22.0-30.0); Globulin 3.1 g/dL (1.3-3.2); Glucose 123 mg/dl (74-100)
[2022-05-05 09:56] LABS: MANUAL DIFFERENTIAL MANUAL DIFFERENTIAL (MANUAL DIFF)
--- NOTE | 2022-05-05 10:02 | ECG_ITS ---
APPROVED REPORT Exam: Resting ECG HR:71 bpm ECG Measurements Heart Rate 71 AXES KS 135 P 27 QRSd 98 QRS 30 QT 367 T 30 QTc 389 Conclusion SINUS RHYTHM POSSIBLE RIGHT VENTRICULAR CONDUCTION DELAY [RSR (QR) IN V1/V2] BORDERLINE ECG UNCONFIRMED REPORT Electronically signed by : Gurwinder Le MD 05/07/2022 21:14:13
--- NOTE | 2022-05-05 10:05 | PC.NURSE ---
pt to CT via wheelchair
[2022-05-05 10:13] LABS: Troponin I < 0.01 ng/ml (0.00-0.034)
[2022-05-05 10:27] LABS: Eosinophils % 1 % (0-3); Lymphocytes % 8 % (10-50); Monocytes % 4 % (2-9); Neutrophils % 87 % (42-76); Platelet Estimate Normal; RBC Morphology Normal; Total Cells Counted 100
[2022-05-05 10:36] LABS: Microscopic, Urine URINE MICROSCOPIC (MICROSCOPIC)
[2022-05-05 10:52] VITALS: BP 156/84; PULSE 101; RESP 18; O2SAT 98
[2022-05-05 11:00] VITALS: BP 148/88; PULSE 95; RESP 18; O2SAT 99
--- NOTE | 2022-05-05 11:01 | PC.NURSE ---
Requested images to be power shared by [facility] to [facility]
--- NOTE | 2022-05-05 11:02 | PC.NURSE ---
placed call to [facility] , awaiting call back after they read images
[2022-05-05 11:06] LABS: Appearance,Urine CLEAR (Clear); Bilirubin,Urine Negative (Negative); Blood, Urine Negative (Negative); Color,Urine YELLOW (Yellow); Glucose,Urine (UA) Negative (Negative); Ketones,Urine TRACE (Negative); Leukocyte Esterase,Urine Negative (Negative); Nitrate,Urine Negative (Negative); Protein,Urine Negative (Negative); Urobilinogen,Urine 0.2 EU/dl (0.2)
--- NOTE | 2022-05-05 11:16 | PC.NURSE ---
pt eating ice chips, tolerating well.
[2022-05-05 11:21] LABS: Squamous Epithelial Cell,Urine Occasional #/hpf (0-5)
--- NOTE | 2022-05-05 11:24 | PC.NURSE ---
pt up to [facility]
[2022-05-05 11:26] LABS: Amphetamine/Metha Screen,Urine Negative ng/ml (<1000)
[2022-05-05 11:28] LABS: Barbiturates Screen,Urine Negative ng/ml (<200); Benzodiazepines Screen,Urine Negative ng/ml (<200)
[2022-05-05 11:29] LABS: Cannabinoid Screen,Urine Positive ng/ml (<50); Cocaine Screen,Urine Negative ng/ml (<300)
[2022-05-05 11:30] LABS: Methadone Screen,Urine Negative ng/ml (<300)
[2022-05-05 11:31] LABS: Opiate Screen,Urine Negative ng/ml (<300); Phencyclidine Screen,Urine Negative ng/ml (<25)
--- NOTE | 2022-05-05 11:39 | PC.NURSE ---
STOOL SENT TO LAB
--- NOTE | 2022-05-05 11:42 | PC.NURSE ---
Dr Hernandez speaking with [facility]
[2022-05-05 12:13] VITALS: BP 129/72; PULSE 104; RESP 18; TEMP 36.8; O2SAT 96
[2022-05-05 12:47] LABS: Adenovirus F 40/41, stool Not Detected (NotDetected); Astrovirus Not Detected (NotDetected); Campylobacter Not Detected (NotDetected); Clostridium Difficile A/B, PCR Not Detected (NotDetected); Cryptosporidium Not Detected (NotDetected); Cyclospora Cayetanesis Not Detected (NotDetected); Entamoeba histolytica Not Detected (NotDetected); Enteropathogenic E coli Not Detected (NotDetected); Enterotoxigenic E coli Not Detected (NotDetected); Giardia lamblia Not Detected (NotDetected); Plesimonas Shigalloides, PCR Not Detected (NotDetected); Rotavirus A Not Detected (NotDetected); Salmonella, PCR Not Detected (NotDetected); Sapovirus Not Detected (NotDetected); Shiga-like toxin E coli Not Detected (NotDetected); Shigella Enterovasive E coli Not Detected (NotDetected); Vibrio Cholerae Not Detected (NotDetected); Vibrio, PCR Not Detected (NotDetected); Yersinia Entercolitica, PCR Not Detected (NotDetected)
[2022-05-05 14:25] LABS: Norovirus Detected (NotDetected)
[2022-05-05 14:26] LABS: Enteroaggregative E coli Detected (NotDetected)
== END 2022-05-05 12:13 | disposition home or self-care (01) ==
PROVIDERS: Emergency Provider Emergency Medicine; PCP Physician Assistant
DX: I72.8 Aneurysm of other specified arteries (principal); R59.0 Localized enlarged lymph nodes; R11.2 Nausea with vomiting, unspecified; R19.7 Diarrhea, unspecified; Z79.899 Other long term (current) drug therapy; Z88.0 Allergy status to penicillin; Z88.1 Allergy status to other antibiotic agents; I10 Essential (primary) hypertension; F41.9 Anxiety disorder, unspecified
CPT/HCPCS: 74177; 80053; 80305; 81001; 83690; 84484; 85007; 85025; 87506; 93005; 96365; 96375; 96376; 99284; J2405; Q9967

== ENCOUNTER → 2022-09-19 08:04 | Outpatient (CLI) | payer BC, SELFPAY ==
--- NOTE | 2022-09-19 08:04 | CT_ITS ---
FINAL REPORT TECHNIQUE: Axial CT images of the abdomen and pelvis were obtained before and after the administration of IV contrast. This study was performed with techniques to keep radiation doses as low as reasonably achievable (ALARA). Individualized dose reduction techniques using automated exposure control or adjustment of mA and/or kV according to the patient''s size were employed. CLINICAL HISTORY: hepatic aneurysm liver prot. used per dr order COMPARISON: 05/05/2022 FINDINGS: Abdomen: The lung bases are clear. The heart is normal in size. On the noncontrast images, there is mild fatty infiltration of the liver. . The spleen is unremarkable. No adrenal masses present. The pancreas has an unremarkable appearance. The kidneys enhance normally. No mass or abnormal fluid collection is seen. There are multiple small retroperitoneal nodes without evidence of adenopathy.. Postcontrast images demonstrate no evidence of abdominal aortic aneurysm or dissection. There is moderate stenosis at the origin of the celiac axis. There is dilatation of the proximal common hepatic artery measuring up to 12 mm and proximal splenic artery measuring up to 9 mm which is stable. No hepatic mass identified. Pelvis: The appendix is normal The urinary bladder is unremarkable. No inflammatory process is seen. There is no evidence of mass or adenopathy. There is no evidence of bowel obstruction. There are left L5 pars defects. IMPRESSION: Stable 12 mm dilatation of the proximal common hepatic artery and 9 mm dilatation of the proximal splenic artery. Mild fatty infiltration of the liver. Reviewed, Interpreted and Dictated by Parmjit Burns III, MD Transcribed by Grace Lovett Authenticated and [facility]
== END ==
LOC: RAD 08:04
PROVIDERS: PCP Physician Assistant; Visit Provider Physician Assistant
DX: I72.8 Aneurysm of other specified arteries (principal)
CPT/HCPCS: 74178; Q9967

== ENCOUNTER → 2023-03-26 02:32 | Outpatient (CLI) | payer BC, SELFPAY ==
[2023-03-26 20:15] LABS: Amphetamine/Metha Screen,Urine Positive ng/ml (<1000)
[2023-03-26 20:16] LABS: Barbiturates Screen,Urine Negative ng/ml (<200)
[2023-03-26 20:17] LABS: Benzodiazepines Screen,Urine Negative ng/ml (<200); Cannabinoid Screen,Urine Positive ng/ml (<50)
[2023-03-26 20:18] LABS: Cocaine Screen,Urine Negative ng/ml (<300)
[2023-03-26 20:19] LABS: Methadone Screen,Urine Negative ng/ml (<300); Opiate Screen,Urine Negative ng/ml (<300)
[2023-03-26 20:20] LABS: Phencyclidine Screen,Urine Negative ng/ml (<25)
== END ==
PROVIDERS: PCP Physician Assistant; Visit Provider Physician Assistant
DX: G62.9 Polyneuropathy, unspecified (principal); Z79.899 Other long term (current) drug therapy
CPT/HCPCS: 80305

== ENCOUNTER → 2023-05-01 22:40 | Outpatient (CLI) | payer BC, SELFPAY ==
[2023-05-01 18:59] LABS: Coronavirus 19, PCR Not Detected (NotDetected); Influenza A, PCR Not Detected (NotDetected); Influenza B, PCR Not Detected (NotDetected)
== END ==
PROVIDERS: PCP Internal Medicine; Visit Provider Internal Medicine
DX: R07.0 Pain in throat (principal); R06.02 Shortness of breath; R05.1 Acute cough
CPT/HCPCS: 87636

== ENCOUNTER 2023-08-20 09:06 | Emergency (ER) | payer BC, SELFPAY ==
[2023-08-20 09:25] VITALS: BP 123/78; PULSE 78; RESP 19; TEMP 36.8; O2SAT 98; BMI 27.7
--- NOTE | 2023-08-20 09:33 | ED_ITS ---
Discharge Plan Disposition Patient Disposition: Home, Self-Care Condition: Good Prescriptions Prescriptions: New bekunhjkumspzqa-xajgvixuh-NM [Bromfed DM] 2-30-10 mg/5 mL Syrup 5 ml PO Q6H PRN (Reason: Cough) Qty: 240 0RF ondansetron 4 mg Tablet,Disintegrating 4 mg PO Q8H PRN (Reason: Nausea) Qty: 12 0RF No Action sildenafil (pulm.hypertension) 20 mg tablet 20 mg PO DAILY Qty: 30 2RF Rx Instructions: administer doses at least 4-6 hours apart amitriptyline 50 mg tablet 50 mg PO QHS Qty: 90 1RF omeprazole 20 mg capsule,delayed release(DR/EC) 20 mg PO DAILY Qty: 90 1RF Vraylar 1.5 mg capsule 1.5 mg PO DAILY Qty: 90 1RF buprenorphine-naloxone 8-2 mg film 1 film BUCCAL DAILY losartan 25 mg tablet See Rx Instructions .ROUTE .COMPLEX Qty: 90 0RF Dose Instruction: TAKE 1 TABLET BY MOUTH ONCE DAILY Rx Instructions: TAKE 1 TABLET BY MOUTH ONCE DAILY gabapentin 800 mg tablet See Rx Instructions .ROUTE .COMPLEX Qty: 90 0RF Dose Instruction: TAKE 1 TABLET BY MOUTH THREE TIMES DAILY FOR PAIN Rx Instructions: TAKE 1 TABLET BY MOUTH THREE TIMES DAILY FOR PAIN Referrals Follow up/Referrals: Alanis Dowd PA [Primary Care Provider] - See instructions Activity Restrictions/Add. Instructions Additional Instructions/Restrictions: Drink plenty of fluids. Take tylenol or ibuprofen for pain or fever. Take the medications as directed. Follow up with your regular doctor. GO TO THE ER FOR ANY WORSENING SYMPTOMS Clinical Impressions Clinical Impression: Acute viral syndrome, Exposure to 2019 novel coronavirus Stand Alone Forms Stand Alone Forms: Work/School Release Instructions Patient Instructions: DI for Viral Syndrome, Coronavirus Disease 2019, Preventing the Spread of Coronavirus Discharge Instructions Discharge ED Provider: Rodrigo Evans [facility] General Stated complaint: headache Time Seen by Provider: 08/20/23 09:31 History of Present Illness Provider Complaint: He states that he has had headache, scratchy throat, and malaise since yesterday. He has been exposed to covid-19 in his home by his daughter currently having it. He denies fever, cough, chest congestion, and shortness of breath. 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 Previous Rx's Medication Instructions Recorded sildenafil (pulm.hypertension) 20 20 mg PO DAILY #30 tabs 05/09/22 mg tablet amitriptyline 50 mg tablet 50 mg PO QHS sleep #90 tabs 03/26/23 cariprazine 1.5 mg capsule 1.5 mg PO DAILY #90 caps 06/13/23 (Vraylar) omeprazole 20 mg capsule,delayed 20 mg PO DAILY #90 caps 06/13/23 release losartan 25 mg tablet See Rx Instructions .Route 06/26/23 .COMPLEX #90 tabs gabapentin 800 mg tablet See Rx Instructions .Route 07/01/23 .COMPLEX #90 tabs wvsjyirfashovqu-hkoiqustitjbwvz-UV 5 ml PO Q6H PRN Cough #240 mL 08/20/23 2 mg-30 mg-10 mg/5 mL oral syrup (Bromfed DM) ondansetron 4 mg disintegrating 4 mg PO Q8H PRN Nausea #12 tabs 08/20/23 tablet Allergies Allergy/AdvReac Type Severity Reaction Status Date / Time Penicillins Allergy Verified 08/20/23 09:39 vancomycin Allergy Verified 08/20/23 09:39 [facility] Disclaimer: The information contained in this section may have been updated after the patient was seen, as this information can be updated by other users. Medical History Anxiety Celiac artery aneurysm Erectile dysfunction Hepatic artery aneurysm Hypertension Neuropathy Vitamin D deficiency Surgical History Arm fracture, left Social History Smoking Status: Current every day smoker tobacco type: e-cigarettes alcohol intake: never substance use type: opiates current occupational status: employed Travel in the last 8 weeks: None ROS Obtained: Yes All systems reviewed & no additional complaints except as documented Constitutional Constitutional: Reports chills and Denies fever(s) Eyes Eyes: Denies eye discharge ENT Ears, Nose, Mouth, and Throat: Reports as per HPI Cardiovascular Cardiovascular: Denies chest pain Respiratory Respiratory: Denies chest congestion and Reports cough Gastrointestinal Gastrointestingal: Reports nausea; Denies abdominal pain, constipation, cramping, diarrhea or vomiting Musculoskeletal Musculoskeletal: Denies arthralgias Integumentary/Breasts Skin/Breast: Denies rash Neurologic Neurologic: Denies paresthesias Physical Exam General General appearance: alert and in no apparent distress Head Head exam: atraumatic, normocephalic and normal inspection Eye Eye exam: Present normal appearance, PERRL and EOMI ENT ENT exam: Present normal exam, normal oropharynx, mucous membranes moist, TM's normal bilaterally and normal external ear exam Neck Neck exam: Present normal inspection, full ROM and trachea midline; Absent meningismus or lymphadenopathy Chest Chest inspection: Present normal inspection and symmetric chest wall rise; Absent tenderness Respiratory Respiratory exam: Present normal lung sounds bilaterally; Absent respiratory distress Cardiovascular Cardiovascular exam: Present regular rate and normal rhythm; Absent JVD Abdominal Exam Abdominal exam: Present soft and normal bowel sounds; Absent distention, tenderness or guarding Extremities Exam Extremities exam: Present normal inspection, full ROM and normal capillary refill; Absent calf tenderness Back Exam Back exam: Present normal inspection; Absent tenderness Neurological Exam Neurological exam: Present alert and oriented X3 Psychiatric Psychiatric exam: Present normal affect and normal mood Skin Skin exam: Present warm, dry, intact and normal color Lymphatic Lymphatic Findings: no adenopathy Medical Decision Making Medical Records Medical records reviewed: No I reviewed the patient's medical records. Rafa Inquiry Pt receiving controlled substance: No Lab Data Lab results reviewed: Yes I reviewed the patient's lab results. Orders (Tests/Meds): ORDERS Category Date Time Status Covid-19 Nasal PCR ([facility]) Routine Lab 08/20/23 09:32 Ordered
[2023-08-20 10:02] VITALS: BP 123/78; PULSE 78; RESP 19; TEMP 36.8; O2SAT 98
== END 2023-08-20 10:02 | disposition home or self-care (01) ==
PROVIDERS: Emergency Provider Nurse Practitioner Family; PCP Physician Assistant
DX: R51.9 Headache, unspecified (principal); R07.0 Pain in throat; R11.0 Nausea; R53.81 Other malaise; B34.9 Viral infection, unspecified; Z20.822 Contact with and (suspected) exposure to COVID-19; F17.290 Nicotine dependence, other tobacco product, uncomplicated; I10 Essential (primary) hypertension
CPT/HCPCS: 87635; 99212; 99214; G0463

== ENCOUNTER 2023-09-01 09:21 | Emergency (ER) | payer BC, SELFPAY ==
[2023-09-01] VITALS (8 sets, daily range): BP systolic 93–133; BP diastolic 37–85; PULSE 61–92; RESP 18–20; TEMP 36.5; O2SAT 96–100; BMI 27.7
--- NOTE | 2023-09-01 09:24 | ED_ITS ---
Discharge Plan Disposition Patient Disposition: Home, Self-Care Condition: Good Prescriptions Prescriptions: New azithromycin 500 mg tablet See Rx Instructions .ROUTE .COMPLEX Qty: 3 0RF Rx Instructions: For 500 mg dose pack: take 500 mg once daily for 3 days No Action sildenafil (pulm.hypertension) 20 mg tablet 20 mg PO DAILY Qty: 30 2RF Rx Instructions: administer doses at least 4-6 hours apart amitriptyline 50 mg tablet 50 mg PO QHS Qty: 90 1RF omeprazole 20 mg capsule,delayed release(DR/EC) 20 mg PO DAILY Qty: 90 1RF Vraylar 1.5 mg capsule 1.5 mg PO DAILY Qty: 90 1RF buprenorphine-naloxone 8-2 mg film 1 film BUCCAL DAILY losartan 25 mg tablet See Rx Instructions .ROUTE .COMPLEX Qty: 90 0RF Dose Instruction: TAKE 1 TABLET BY MOUTH ONCE DAILY Rx Instructions: TAKE 1 TABLET BY MOUTH ONCE DAILY gabapentin 800 mg tablet See Rx Instructions .ROUTE .COMPLEX Qty: 90 0RF Dose Instruction: TAKE 1 TABLET BY MOUTH THREE TIMES DAILY FOR PAIN Rx Instructions: TAKE 1 TABLET BY MOUTH THREE TIMES DAILY FOR PAIN dcbbiwshyldkevm-[id number] [Bromfed DM] 2-30-10 mg/5 mL Syrup 5 ml PO Q6H PRN (Reason: Cough) Qty: 240 0RF ondansetron 4 mg Tablet,Disintegrating 4 mg PO Q8H PRN (Reason: Nausea) Qty: 12 0RF Referrals Follow up/Referrals: Provider,Referral, MD [Primary Care Provider] - See instructions Clinical Impressions Clinical Impression: Acute left otitis media Stand Alone Forms Stand Alone Forms: Work/School Release Discharge ED Provider: Da Villafana General Adult HPI General Chief complaint: Upper Respiratory Infection Stated complaint: chest pain Time Seen by Provider: 09/01/23 09:24 History of Present Illness HPI narrative: Patient presents with chest pain with coughing, upper respiratory symptoms including congestion, bilateral otalgia, ongoing for several days, with serial COVID testing negative. Patient has had sick contacts. No recent travel. He does describe pain is pleuritic in nature. It is not exertional, nonradiating, nonpositional. He does describe dyspnea, in the absence of cough,. No abdominal pain. Does have history of recreational drug use per chart review. Denies chronic medical conditions. No leg pain or leg swelling. No recent tr demetrius. No hemoptysis. 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 Previous Rx's Medication Instructions Recorded sildenafil (pulm.hypertension) 20 20 mg PO DAILY #30 tabs 05/09/22 mg tablet amitriptyline 50 mg tablet 50 mg PO QHS sleep #90 tabs 03/26/23 cariprazine 1.5 mg capsule 1.5 mg PO DAILY #90 caps 06/13/23 (Vraylar) omeprazole 20 mg capsule,delayed 20 mg PO DAILY #90 caps 06/13/23 release losartan 25 mg tablet See Rx Instructions .Route 06/26/23 .COMPLEX #90 tabs gabapentin 800 mg tablet See Rx Instructions .Route 07/01/23 .COMPLEX #90 tabs vbmrmnltbtetbfh-mcabgizbunwgtqg-PT 5 ml PO Q6H PRN Cough #240 mL 08/20/23 2 mg-30 mg-10 mg/5 mL oral syrup (Bromfed DM) ondansetron 4 mg disintegrating 4 mg PO Q8H PRN Nausea #12 tabs 08/20/23 tablet azithromycin 500 mg tablet See Rx Instructions PO .COMPLEX #3 09/01/23 tabs Allergies Allergy/AdvReac Type Severity Reaction Status Date / Time Penicillins Allergy Verified 08/20/23 09:39 vancomycin Allergy Verified 08/20/23 09:39 [facility] Disclaimer: The information contained in this section may have been updated after the p atient was seen, as this information can be updated by other users. Medical History Anxiety Celiac artery aneurysm Erectile dysfunction Hepatic artery aneurysm Hypertension Neuropathy Vitamin D deficiency Surgical History Arm fracture, left Social History Smoking Status: Current every day smoker tobacco type: e-cigarettes alcohol intake: never substance use type: opiates current occupational status: employed Travel in the last 8 weeks: None ROS Obtained: Yes Systems reviewed as appropriate & no additional complaints except as documented As per HPI Physical Exam General General appearance: alert Comment: Uncomfortable appearing however nontoxic Head Head exam: atraumatic, normocephalic and other (Tympanic membranes bilaterally bulging and erythematous) Eye Eye exam: Present normal appearance Neck Neck exam: Present normal inspection Chest Chest inspection: Present normal inspection and symmetric chest wall rise Respiratory Respiratory exam: Present normal lung sounds bilaterally; Absent respiratory distress Cardiovascular Cardiovascular exam: Present regular rate, normal rhythm and tachycardia Abdominal Exam Abdominal exam: Present soft; Absent tenderness Neurological Exam Neurological exam: Present alert and oriented X3 Psychiatric Psychiatric exam: Present normal affect and normal mood Skin Skin exam: Present warm and dry Medical Decision Making Medical Records Medical records reviewed: Yes I reviewed the patient's medical records. Rafa Inquiry Pt receiving controlled substance: No Vital Signs: 09/01/23 09:26 09/01/23 10:00 09/01/23 10:35 Temperature 97.7 F Temperature Source Oral Pulse Rate 92 H 75 Pulse Rate [Left] 67 Respiratory Rate 18 18 Blood Pressure 133/78 108/58 L Blood Pressure [Right Arm] 131/85 Blood Pressure Mean 90 Blood Pressure Mean [Right Arm] 100 Blood Pressure Source [Right Arm] Automatic Cuff Blood Pressure Position [Right Arm] Sitting 02 Sat by Pulse Oximetry 100 99 96 Oxygen Delivery Method Room Air Room Air 09/01/23 11:00 09/01/23 11:30 09/01/23 12:00 Temperature Temperature Source Pulse Rate 61 63 Pulse Rate [Left] Respiratory Rate 20 20 Blood Pressure 114/72 104/65 L 93/58 L Blood Pressure [Right Arm] Blood Pressure Mean 81 78 68 Blood Pressure Mean [Right Arm] Blood Pressure Source [Right Arm] Blood Pressure Position [Right Arm] 02 Sat by Pulse Oximetry 96 98 Oxygen Delivery Method 09/01/23 12:30 09/01/23 13:00 Temperature 97.7 F Temperature Source Pulse Rate 63 Pulse Rate [Left] Respiratory Rate 20 Blood Pressure 106/57 L 106/37 L Blood Pressure [Right Arm] Blood Pressure Mean 67 Blood Pressure Mean [Right Arm] Blood Pressure Source [Right Arm] Blood Pressure Position [Right Arm] 02 Sat by Pulse Oximetry Oxygen Delivery Method Room Air Lab Data Lab Results 09/01/23 09:26: WBC 6.6, RBC 5.54, Hgb 17.0, Hct 49.4, MCV 89.2, MCH 30.7, MCHC 34.5, RDW 12.9, Plt Count 277, MPV 7.7, Neut % (Auto) 71.5, Lymph % (Auto) 20.4, Alexander % (Auto) 6.9, Eos % (Auto) 0.8, Baso % (Auto) 0.4, Neut # (Auto) 4.7, Lymph # (Auto) 1.3, Alexander # (Auto) 0.5, Eos # (Auto) 0.1, Baso # (Auto) 0.0, D-Dimer 0.77 H, Sodium 137, Potassium 3.6, Chloride 99, Carbon Dioxide 33 H, Anion Gap 8.6, BUN 10, Creatinine 0.90, Estimated Creat Clear 146, Estimated GFR 96, Est GFR ( Amer) 116, Glucose 98, Calcium 9.1, Magnesium 2.1, Total Bilirubin 0.6, AST 25, ALT 22, Alkaline Phosphatase 100, Troponin I < 0.01, Total Protein 6.8, Albumin 4.0, Globulin 2.8, Albumin/Globulin Ratio 1.4 09/01/23 09:27: SARS-CoV-2 (PCR) Not detected, Influenza A Untype (PCR) Not detected, Influenza Type B (PCR) Not detected, Group A Strep Rapid Negative 09/01/23 11:28: Troponin I < 0.01 09/01/23 09:26 09/01/23 09:26 Orders (Tests/Meds): ED MEDICATIONS Discontinued Medications Generic Name Dose Route Start Last Admin Trade Name Freq PRN Reason Stop Dose Admin Dexamethasone Sodium Phosphate 8 mg 09/01/23 12:35 09/01/23 13:01 Dexamethasone 4mg/Ml 1ml Vial IM 09/01/23 12:36 8 mg ONCE ONE Administration Lactated Ringer's 1,000 mls @ 999 mls/hr 09/01/23 10:00 09/01/23 10:31 Lactated Ringer's 1000 Ml Bag IV 09/01/23 11:00 999 mls/hr .Q1H1M ONE Administration Iopamidol 70 ml 09/01/23 10:46 09/01/23 10:48 Iopamidol-370 (76%);100ml Bottle IV 09/01/23 10:47 70 ml ONCE ONE Administration Ketorolac Tromethamine 15 mg 09/01/23 10:00 09/01/23 10:31 Ketorolac 30mg/Ml Vial IV 09/01/23 10:01 15 mg ONCE ONE Administration Ondansetron HCl 4 mg 09/01/23 10:00 09/01/23 10:29 Ondansetron 4mg Odt SL 09/01/23 10:01 Not Given ONCE ONE Ondansetron HCl 4 mg 09/01/23 10:25 09/01/23 10:31 Ondansetron 4mg/2ml Vial IV 09/01/23 10:26 4 mg ONCE ONE Administration Sodium Chloride 50 ml 09/01/23 10:46 09/01/23 10:48 0.9 % Sodium Chloride 50 Ml Vial IV 09/01/23 10:47 50 ml ONCE ONE Administration Sodium Chloride 10 ml 09/01/23 10:46 Sodium Chloride 0.9% 10ml Syr (Rad Only) IV 10/01/23 10:45 NEEDED PRN Maintain IV Site ORDERS Category Date Time Status CTA Chest [CT angio chest PE protocol] Stat Cat Scan 09/01/23 10:33 Completed XR chest 2V Stat Exams 09/01/23 10:01 Completed CBC w/Auto Diff [Complete Blood Count Auto Diff] Stat Lab 09/01/23 09:26 Completed CMP [Comprehensive Metabolic Panel] Stat Lab 09/01/23 09:26 Completed D-Dimer Stat Lab 09/01/23 09:26 Completed MAG [Magnesium] Stat Lab 09/01/23 09:26 Completed Rapid PCR Covid and Flu A/B Stat Lab 09/01/23 09:27 Completed Strep Scrn Group A (Rapid) Stat Lab 09/01/23 09:27 Completed Troponin I Q2H Lab 09/01/23 09:26 Completed Troponin I Q2H Lab 09/01/23 11:28 Completed Strep Screen Confirmation Stat Micro 09/01/23 09:27 Received ECG initial [place] Routine Y 09/01/23 09:24 Completed HEART Score History (anamnesis): Moderately suspicious ECG: Non-specific disturbance Age: <45 years Risk factors: 1-2 risk factors Troponin: </= normal limit HEART Score: 3 Medical Decision Narrative: Patient with history and exam per above presenting for evaluation of upper respiratory symptoms, chest pain Diagnoses considered include COVID, influenza, otitis media,ACS, aortic dissection, pericarditis, PE, pneumothorax, pneumonia, GERD, costochondritis, referred pain ED workup and treatment included: ED MEDICATIONS Discontinued Medications Generic Name Dose Route Start Last Admin Trade Name Freq PRN Reason Stop Dose Admin Dexamethasone Sodium Phosphate 8 mg 09/01/23 12:35 09/01/23 13:01 Dexamethasone 4mg/Ml 1ml Vial IM 09/01/23 12:36 8 mg ONCE ONE Administration Lactated Ringer's 1,000 mls @ 999 mls/hr 09/01/23 10:00 09/01/23 10:31 Lactated Ringer's 1000 Ml Bag IV 09/01/23 11:00 999 mls/hr .Q1H1M ONE Administration Iopamidol 70 ml 09/01/23 10:46 09/01/23 10:48 Iopamidol-370 (76%);100ml Bottle IV 09/01/23 10:47 70 ml ONCE ONE Administration Ketorolac Tromethamine 15 mg 09/01/23 10:00 09/01/23 10:31 Ketorolac 30mg/Ml Vial IV 09/01/23 10:01 15 mg ONCE ONE Administration Ondansetron HCl 4 mg 09/01/23 10:00 09/01/23 10:29 Ondansetron 4mg Odt SL 09/01/23 10:01 Not Given ONCE ONE Ondansetron HCl 4 mg 09/01/23 10:25 09/01/23 10:31 Ondansetron 4mg/2ml Vial IV 09/01/23 10:26 4 mg ONCE ONE Administration Sodium Chloride 50 ml 09/01/23 10:46 09/01/23 10:48 0.9 % Sodium Chloride 50 Ml Vial IV 09/01/23 10:47 50 ml ONCE ONE Administration Sodium Chloride 10 ml 09/01/23 10:46 Sodium Chloride 0.9% 10ml Syr (Rad Only) IV 10/01/23 10:45 NEEDED PRN Maintain IV Site ORDERS Category Date Time Status CTA Chest [CT angio chest PE protocol] Stat Cat Scan 09/01/23 10:33 Completed XR chest 2V Stat Exams 09/01/23 10:01 Completed CBC w/Auto Diff [Complete Blood Count Auto Diff] Stat Lab 09/01/23 09:26 Completed CMP [Comprehensive Metabolic Panel] Stat Lab 09/01/23 09:26 Completed D-Dimer Stat Lab 09/01/23 09:26 Completed MAG [Magnesium] Stat Lab 02/26/24 09:26 Completed Rapid PCR Covid and Flu A/B Stat Lab 09/01/23 09:27 Completed Strep Scrn Group A (Rapid) Stat Lab 09/01/23 09:27 Completed Troponin I Q2H Lab 09/01/23 09:26 Completed Troponin I Q2H Lab 09/01/23 11:28 Completed Strep Screen Confirmation Stat Micro 09/01/23 09:27 Received ECG initial [place] Routine Y 09/01/23 09:24 Completed Labs were independently interpreted by me, significant for viral swab negative, serial troponins undetectable, D-dimer 0.77, no leukocytosis Patient's EKG was independently visualized and interpreted by me significant for sinus rhythm, normal axis, no acute ST changes Imaging was independently visualized and interpreted by me, significant for no acute pulmonary pathology, nor evidence of pulmonary embolism. Please or refer to radiology report for full details. My clinical impression at this time is most consistent with unspecified viral URI complicated by secondary suspected bacterial bilateral otitis media. For this reason will be treated with course of antibiotics and will follow-up with primary care physician I discussed my clinical impression with patient and answered all questions. At this time, the evidence for any other entities in the differential is insufficient to warrant any further testing or ED observation. This was explained to the patient. The patient was advised that persistent or worsening symptoms require further evaluation. I confirmed the patient's understanding of this discussion. Critical Care Critical Care Time Critical Care Time: No
--- NOTE | 2023-09-01 09:24 | ECG_ITS ---
APPROVED REPORT Exam: Resting ECG HR:94 bpm ECG Measurements Heart Rate 94 AXES LA 126 P 74 QRSd 94 QRS 70 QT 320 T 82 QTc 372 Conclusion SINUS RHYTHM POSSIBLE RIGHT VENTRICULAR CONDUCTION DELAY [RSR (QR) IN V1/V2] BORDERLINE ECG UNCONFIRMED REPORT Electronically signed by : Gurwinder Le MD 09/01/2023 19:59:21
[2023-09-01 09:32] LABS: Coronavirus 19, PCR Not Detected (NotDetected); Influenza A, PCR Not Detected (NotDetected); Influenza B, PCR Not Detected (NotDetected)
[2023-09-01 09:44] LABS: Strep Scrn Group A (Rapid) Negative (Negative)
--- NOTE | 2023-09-01 10:01 | XR_ITS ---
FINAL REPORT CLINICAL HISTORY: 3 wk productive cough, fever, shortness of breath COMPARISON: None FINDINGS: PA and lateral views of the chest are obtained. There is no prior exam for comparison. The cardiac and mediastinal silhouettes are within normal limits. The lungs are clear. There is no pleural effusion, pneumothorax, or acute osseous abnormality. IMPRESSION: No radiographic evidence of acute cardiac or pulmonary disease. Reviewed, Interpreted and Dictated by Laquita Tesfaye MD Transcribed by Grace Lovett Authenticated and [facility]
--- NOTE | 2023-09-01 10:10 | PC.NURSE ---
Pt gone to RAD via wheelchair
[2023-09-01 10:12] LABS: Basophils % 0.4 % (0.1-2.0); Eosinophils # 0.1 K/mm3 (0.0-0.4); Eosinophils % 0.8 % (0.1-12.0); Hematocrit 49.4 % (42.0-52.0); Lymphocytes # 1.3 K/mm3 (0.7-4.5); Lymphocytes % 20.4 % (10-50); Mean Corpuscular HGB Conc 34.5 g/dL (31.8-35.4); Mean Corpuscular Hemoglobin 30.7 pg (27.0-31.2); Mean Corpuscular Volume 89.2 fl (80-94); Mean Platelet Volume 7.7 fl (7.4-10.4); Monocytes # 0.5 K/mm3 (0.1-1.0); Monocytes % 6.9 % (1.7-9.3); Neutrophils # 4.7 K/mm3 (1.8-7.8); Neutrophils % 71.5 % (37.0-80.0); Platelet Count 277 K/mm3 (142-424); Red Blood Count 5.54 M/mm3 (4.60-6.20); Red Cell Distribution Width 12.9 % (11.5-17.5); White Blood Count 6.6 K/mm3 (4.8-10.8)
[2023-09-01 10:15] LABS: Alanine Aminotransferase 22 U/L (12-78); Albumin/Globulin Ratio 1.4 (1.1-1.8); Alkaline Phosphatase 100 U/L (38-126); Anion Gap 8.6 mEq/L (5-15); Aspartate Amino Transferase 25 U/L (17-59); Bilirubin,Total 0.6 mg/dl (0.2-1.3); Blood Urea Nitrogen 10 mg/dl (9-20); Calcium 9.1 mg/dl (8.4-10.2); Carbon Dioxide 33 mmol/L (22.0-30.0); Chloride 99 mmol/L (98-107); Creatinine Clearance Estimated 146 mL/min (50-200); Estimated Glomerular Filt Rate 96 ml/min (>60); GFR (African American) 116 ML/MIN (>60); Globulin 2.8 g/dL (1.3-3.2); Glucose 98 mg/dl (74-100); Magnesium 2.1 mg/dl (1.6-2.3); Potassium 3.6 mmoL/L (3.5-5.1); Sodium 137 mmol/L (136-145); Total Protein,Serum 6.8 g/dl (6.3-8.2)
--- NOTE | 2023-09-01 10:16 | PC.NURSE ---
PT returned from RAD
[2023-09-01 10:19] LABS: D-Dimer 0.77 ug/mL (0.0-0.5)
[2023-09-01 10:30] LABS: Troponin I < 0.01 ng/ml (0.00-0.034)
[2023-09-01] MEDS: ONDANSETRON 4MG/2ML VIAL 4 MG IV (10:31)
[2023-09-01] MEDS: KETOROLAC 30MG/ML VIAL 15 MG IV (10:31)
[2023-09-01] MEDS: LACTATED RINGERS 1000ML 1,000 ML 999 ML IV (10:31)
--- NOTE | 2023-09-01 10:33 | CT_ITS ---
FINAL REPORT TECHNIQUE: Axial imaging of the chest is obtained after the administration of contrast. 3-D MIP reformatted images were also obtained and reviewed per PE protocol. This study was performed with techniques to keep radiation doses as low as reasonably achievable, (ALARA). Individualized dose reduction techniques using automated exposure control or adjustment of mA and/or kV according to the patient's size were employed. CLINICAL HISTORY: tachycardia, shortness of breath, +dimer COMPARISON: None FINDINGS: The pulmonary arteries are well filled. There is no evidence of pulmonary embolus. There is no aortic dissection or intimal flap. There is no mediastinal, hilar, or axillary lymphadenopathy. The lungs are clear. There is no pleural or pericardial effusion. Limited evaluation of the upper abdomen is without acute abnormality. No acute osseous abnormality. IMPRESSION: No evidence of pulmonary embolism or aortic dissection. No acute intrathoracic abnormality. Reviewed, Interpreted and Dictated by Laquita Tesfaye MD Transcribed by Grace Lovett Authenticated and [facility]
[2023-09-01] MEDS: IOPAMIDOL-370 (76%);100ML BOTTLE 70 ML IV (10:48)
[2023-09-01] MEDS: 0.9 % SODIUM CHLORIDE 50 ML VIAL IV (10:48)
[2023-09-01 12:06] LABS: Troponin I < 0.01 ng/ml (0.00-0.034)
[2023-09-01] MEDS: DEXAMETHASONE 4MG/ML 1ML VIAL 8 MG IM (13:01)
== END 2023-09-01 13:01 | disposition home or self-care (01) ==
PROVIDERS: Emergency Provider Emergency Medicine
DX: R07.81 Pleurodynia (principal); R06.00 Dyspnea, unspecified; R05.9 Cough, unspecified; R09.81 Nasal congestion; H66.92 Otitis media, unspecified, left ear; I72.8 Aneurysm of other specified arteries; I10 Essential (primary) hypertension; G62.9 Polyneuropathy, unspecified; F17.290 Nicotine dependence, other tobacco product, uncomplicated
CPT/HCPCS: 71046; 71275; 80053; 83735; 84484; 85025; 85378; 87430; 87636; 93005; 96361; 96372; 96374; 96375; 99285; J2405; Q9967

== ENCOUNTER 2024-05-13 14:57 | Outpatient (CLI) | payer BC, SELFPAY ==
[2024-05-13 19:16] LABS: Coronavirus 19, PCR Not Detected (NotDetected); Influenza A, PCR Not Detected (NotDetected); Influenza B, PCR Not Detected (NotDetected)
== END 2024-05-13 23:59 | disposition home or self-care (01) ==
LOC: LAB.DROPOF 05-14 08:52
PROVIDERS: PCP Family Medicine; Visit Provider Family Medicine
DX: R68.89 Other general symptoms and signs (principal)
CPT/HCPCS: 87636